=== PATIENT | male | born 1980 | race American Indian/Alaskan Native ===

== ENCOUNTER 2021-06-01 08:28 | Emergency (ER) | payer SELFPAY ==
[2021-06-01 08:46] VITALS: BP 140/92
[2021-06-01] MEDS ORDERED: ACETAMINOPHEN 325 MG TAB PO ONE (08:47)
[2021-06-01] MEDS ORDERED: LIDOCAINE (1%) 10 MG/1 ML VIAL 20 ML MDV INFILTRATI ONE (08:47)
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
[2021-06-01] MEDS ORDERED: SODIUM CHLORIDE 0.9% IRR 500 ML BOTTLE IR SCH (09:00)
== END 2021-06-01 09:42 | disposition home or self-care (01) ==
LOC: ED 08:28
DX: S01.81XA Laceration without foreign body of other part of head, initial encounter (principal); X58.XXXA Exposure to other specified factors, initial encounter; Y93.89 Activity, other specified; Y92.89 Other specified places as the place of occurrence of the external cause; Y99.8 Other external cause status
CPT/HCPCS: 12011; 99282; J3490

== ENCOUNTER 2021-06-02 23:38 | Emergency (ER) | payer SELFPAY ==
[2021-06-03 00:57] VITALS: BP 147/96
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
== END 2021-06-03 01:50 | disposition home or self-care (01) ==
LOC: ED 23:38
DX: T81.30XA Disruption of wound, unspecified, initial encounter (principal); Y08.89XA Assault by other specified means, initial encounter; Y93.89 Activity, other specified; Y92.89 Other specified places as the place of occurrence of the external cause; Y99.8 Other external cause status
CPT/HCPCS: 99282

== ENCOUNTER 2021-06-08 05:43 | Emergency (ER) | payer SELFPAY ==
--- NOTE | 2021-06-08 06:47 | Emergency Department Report ---
Suture/Staple Removal - [facility] Chief Complaint: Laceration/Recheck/Suture Stated Complaint: SUTURAL REMOVAL Time Seen by Provider: 06/08/21 06:21 When Sutures or [place] Placed: 5-7 Days Ago Wound Location: left eyebrow ED Review of Systems ROS: Stated complaint: SUTURAL REMOVAL Other details as noted in HPI Comment: All other systems reviewed and negative Constitutional: denies: chills, fever Eyes: denies: eye pain, eye discharge, vision change ENT: denies: ear pain, throat pain Respiratory: denies: cough, shortness of breath, wheezing Cardiovascular: denies: chest pain, palpitations Endocrine: no symptoms reported Gastrointestinal: denies: abdominal pain, nausea, diarrhea Genitourinary: denies: urgency, dysuria Musculoskeletal: denies: back pain, joint swelling, arthralgia Skin: denies: rash, lesions Neurological: denies: headache, weakness, paresthesias Psychiatric: denies: anxiety, depression Hematological/Lymphatic: denies: easy bleeding, easy bruising ED Past Medical Hx - Social History Smoking Status: Current Every Day Smoker Substance Use Type: None - Medications Home Medications: Home Medications Medication Instructions Recorded Confirmed Last Taken Type Sulfamethoxazole/Trimethoprim 1 each PO BID #10 tablet 06/01/21 Unknown Rx [Bactrim DS TAB] Suture Removal Exam - Exam General: Vital signs noted. No distress. Alert and acting appropriately. Wound: No Pathologic Erythema, No Tenderness, No Drainage, No Pus, No Wound Dehiscence Other Systems: All other systems reviewed and are unremarkable. ED Course Vital Signs 06/08/21 06:02 Temperature 98.2 F Pulse Rate 81 Respiratory 18 Rate Blood Pressure 147/93 O2 Sat by Pulse 97 Oximetry - Reevaluation(s) Reevaluation #1: 06/08/21 06:46 Patient is speaking in full sentences with no signs of distress noted. ED Recheck MDM - Medical Decision Making This is a 40-year-old male that presents with suture removal. She is stable and was examined by me. Total of 2 sutures has been removed and patient tolerated well. No signs of wound dehiscence, drainage, or cellulitis. Patient was referred to Follow-up with a primary care doctor in 3-5 days or if symptoms worsen and continue return to emergency room as soon as possible. At time of discharge, the patient does not seem toxic or ill in appearance. No acute signs of distress noted. Patient agrees to discharge treatment plan of care. No further questions noted by the patient. Critical care attestation.: If time is entered above; I have spent that time in minutes in the direct care of this critically ill patient, excluding procedure time. ED Disposition Clinical Impression: Encounter for removal of sutures Disposition: 01 HOME / SELF CARE / HOMELESS Is pt being admited?: No Does the pt Need Aspirin: No Condition: Stable Instructions: Suture Removal, Care After Additional Instructions: Follow-up with a primary care doctor in 3-5 days or if symptoms worsen and continue return to emergency room as soon as possible. Time of Disposition: 06:46
[2021-06-08 07:16] VITALS: BP 139/96
== END 2021-06-08 07:14 | disposition home or self-care (01) ==
LOC: ED 05:43
DX: S01.112D Laceration without foreign body of left eyelid and periocular area, subsequent encounter (principal); F17.200 Nicotine dependence, unspecified, uncomplicated; Z79.899 Other long term (current) drug therapy; X58.XXXD Exposure to other specified factors, subsequent encounter
CPT/HCPCS: 99282